=== PATIENT | male | born 1980 | race Caucasian/White ===

== ENCOUNTER 2021-03-30 11:25 | Emergency (ER) | payer SELFPAY ==
[2021-03-30 11:26] VITALS: BP 141/91; PULSE 80; RESP 19; TEMP 37; O2SAT 98; BMI 22.4
[2021-03-30 11:36] VITALS: BP 141/91; PULSE 76; O2SAT 97
--- NOTE | 2021-03-30 11:42 | [facility].EDGENADL ---
ED Disposition Clinical Impression: Shingles rash Qualifiers: Herpes zoster complications: without complications Qualified Code(s): B02.9 - Zoster without complications Disposition: Home, Self-Care Condition on Discharge: Good Instructions: DI for Shingles Prescriptions: Hydrocod/Acet 5/325 mg [[place] 5/325mg tablet] 1 tab PO Q6HP PRN #10 tab PRN Reason: Moderate Pain Valacyclovir HCl [Valacyclovir] 1,000 mg PO TID #21 tab Transmission Status: Pending to [facility]/pharmacy #[id number] Referrals: Gaye Hughes APRN [Primary Care Provider] - - Critical Care Critical Care Time: No Attestation: On , the high probability of a clinically significant, sudden or life threatening deterioration of the following system(s) required my full and direct attention, intervention and personal management. The time I documented below is in addition to time spent performing reported procedures but includes the following listed in this critical care notation. Medical Decision Making - Medical Records Medical records reviewed: Yes: I reviewed the patient's medical records. - Mil Inquiry Pt receiving controlled substance: No Vital Signs: 03/30/21 11:26 Temperature 98.6 F Temperature Source Oral Pulse Rate [Left Radial] 80 Respiratory Rate 19 Blood Pressure [Right Arm] 141/91 H Blood Pressure Mean [Right Arm] 107 Blood Pressure Source [Right Arm] Automatic Cuff Blood Pressure Position [Right Arm] Sitting 02 Sat by Pulse Oximetry 98 Oxygen Delivery Method Room Air Medical Decision Narrative: This is a 40-year-old male presented to the emergency department with findings consistent with herpes zoster. The patient does have evidence of lesions on the scalp and upper face. However there is no involvement of the eye. The patient does not have any diminished eyesight or pain with eyesight. There is no evidence of lesions in the ear or involving the nose. This does not appear to be involving the ophthalmic branch of the cranial nerve. I did have discussion with the patient regarding the need for follow-up given the close proximity to the eye. Patient has elected to attempt outpatient treatment for the next 48 hours. I explained to the patient that he does need repeat examination at that time or return to the emergency department. Patient verbalized understanding. Given strict return precautions. General Adult HPI - General Chief complaint: PAIN Stated complaint: pain in eye, head, ear Time Seen by Provider: 03/30/21 11:30 Mode of Arrival: Ambulatory Limitations: No Limitations Description of Symptoms (Recalled from ER Triage Doc. by RN): c/o right eye, head, and ear pain for 3 days. Eye lid swollen on right side, rash noted to top of head and cheek area - History of Present Illness HPI narrative: This is a 40-year-old male presented to the emergency department with a rash on the right side of his face and head. Patient states that it started just under 3 days ago. He is complaining of some significant pain and discomfort on his forehead, scalp and cheek. The patient noted some red lesions in clusters located over this area. He has had some minimal swelling in the area as well. He denies any trauma to the area. No fevers or chills. He is not having any change in vision or eye pain. Patient states that the lesions are extremely tender to palpation. Even if he brushes against him they cause some pain. He is not having any chest pain or shortness of breath. No headache or focal weakness. No neck pain. Denies any abdominal pain or vomiting. No diarrhea. - Related Data Previous Rx's Medication Instructions Recorded Hydrocod/Acet 5/325 mg [[place] 1 tab PO Q6HP PRN #10 tab 03/30/21 5/325mg tablet] Valacyclovir HCl [Valacyclovir] 1,000 mg PO TID #21 tab 03/30/21 [facility] History - Hepatitis A Screen Drug use history?: No High risk sexual behaviors?: No History of sexually transmitted infection?: No Cu
[2021-03-30 12:00] VITALS: BP 143/88; PULSE 86; O2SAT 95
[2021-03-30 12:16] VITALS: BP 143/88; PULSE 86; RESP 20; TEMP 37; O2SAT 95
== END 2021-03-30 12:17 | disposition home or self-care (01) ==
LOC: ER 12:16
PROVIDERS: Emergency Provider Emergency Medicine; PCP Nurse Practitioner Family
DX: B02.9 Zoster without complications (principal)
CPT/HCPCS: 99281